=== PATIENT | female | born 1960 | race Caucasian/White ===

== ENCOUNTER 2024-03-06 21:00 | Emergency (ER) | payer OTHER, SELFPAY ==
[2024-03-06 21:02] VITALS: BP 162/95
[2024-03-06 21:16] LABS: % Basophils 0.7 % (0-2); % Eosinophils 1.4 % (0-6); % Immature Granulocytes 0.2 % (0-0.5); % Lymphocytes 47.3 % (20.5-51.1); % Monocytes 5.4 % (1.7-9.3); Absolute Basophils 0.1 10^3/uL (0-0.2); Absolute Eosinophils 0.1 10^3/uL (0-0.7); Absolute Lymphocytes 4.4 10^3/uL (1.2-3.4); Absolute Monocytes 0.5 10^3/uL (0.1-0.6); Absolute Neutrophils 4.2 10^3/uL (1.4-6.5); Hematocrit 39.6 % (37.0-47.0); Hemoglobin 13.5 g/dL (12.0-16.0); Mean Corp Hgb Conc. 34.1 g/dL (33.0-37.0); Mean Corpuscular Hgb 30.8 pg (27.0-31.0); Mean Corpuscular Volume 90.2 fL (81.0-99.0); Mean Platelet Volume 9.8 fL (7.4-10.4); Nucleated Red Blood Cells % 0 %; Platelet Count 316 10^3/uL (130-400); Red Blood Cell Count 4.39 10^6/uL (4.20-5.40); Red Cell Dist. Width 11.9 % (11.5-14.5); White Blood Cell Count 9.3 10^3/uL (4.8-10.8)
[2024-03-06 21:31] LABS: ALT (SGPT) 24 U/L (0-35); AST (SGOT) 28 U/L (14-36); Albumin 4.8 g/dl (3.5-5.0); Alkaline Phosphatase 68 U/L (38-126); Blood Urea Nitrogen 18 mg/dl (7-17); Calcium 9.9 mg/dl (8.4-10.2); Carbon Dioxide 26 mmol/L (22-30); Chloride 102 mmol/L (98-107); Glucose 112 mg/dl (70-99); Potassium 4.3 mmol/L (3.5-5.1); Sodium 136 mmol/L (135-145); Total Bilirubin 0.7 mg/dl (0.2-1.3); eGFR > 60.00
[2024-03-06 21:32] LABS: Lipase 91 U/L (23-300)
[2024-03-06 21:42] LABS: Troponin I < 0.012 ng/ml
[2024-03-06 23:50] VITALS: BMI 27.8
[2024-03-06 23:52] VITALS: BP 185/68
[2024-03-07] VITALS: BP 156/95
--- NOTE | 2024-03-07 00:49 | ED.GENMED ---
History of Present Illness
General
Chief Complaint: Chest Pain
Source: patient
Time Seen by Provider: 03/07/24 00:32
Travel History
Have you had any contact with someone who has COVID-19?: No
Do you have any symptoms of coronavirus? Fever > 100 degrees, chills, cough, shortness of breath, sore throat, loss of taste or smell, muscle aches, or headache?: No
History of Present Illness
History of Present Illness:
63-year-old female presents to the emergency room complaining of chest pain. Patient began having the chest discomfort at around 6 PM. When asked what she was doing at that time the pain began she states she was stressing about work. She denies
having chest pain with exertion. She does not smoke. No known significant medical history. Discomfort is gone at this time. She denies associated diaphoresis, shortness of breath or radiation of the discomfort. She did feel mildly nauseous when
the discomfort for started. She is not having any abdominal pain.
Past History
Past History
ED Past Medical History: Other (Esophageal stricture)
ED Past Surgical History: None
Social History
Tobacco: Non-smoker
Alcohol: None
Drug: None
Living: with family
Phy Exam
Physical Exam
Physical Exam:
General: Awake, Alert, Oriented X3. No acute distress.
Vitals: unremarkable
Head: Atraumatic
Eyes: Pupils equal, EOMI
Throat: Airway intact, no exudates
Neck: Trachea midline
Lungs: Clear and equal b/l
Heart: Regular rate, no murmurs
Abd: Soft, Nontender, No pulsatile mass
Neuro: Nonfocal
Skin: Warm, dry, no rash
Extremities: pulses equal b/l, no edema
Scores
Heart Score for Chest Pain Patients
STEMI patient?: No
History: Slightly or Non-Suspicious
ECG: Normal
Age: >45 - <65 years
Risk Factors: 1 or 2 Risk Factors
Troponin: </= Normal Limit
Heart Score for Chest Pain Patients: 2
Heart Score Risk: 2.5% MACE over next 6 weeks
Course
Orders/Labs/Results
Orders:
Orders
03/06/24 21:04
Electrocardiogram (*1) Urgent
Reason for Study: Chest Pain
EKG- Treatment ONCE
03/06/24 21:08
Complete Blood Count/With Diff Urgent
Comprehensive Metabolic Panel Urgent
Lipase Urgent
Troponin I Urgent
03/07/24 00:49
Electrocardiogram (*1) Urgent
Reason for Study: Chest Pain
EKG- Treatment ONCE
03/07/24 01:22
Troponin I Urgent
Abnormal Lab Results
03/06/24
21:08
Absolute Lymphs (auto) 4.4 H 10^3/uL
(1.2-3.4)
BUN 18 H mg/dl
(7-17)
Glucose 112 H mg/dl
(70-99)
03/06/24 21:08
03/06/24 21:08
Vital Signs
Initial and Last Documented VS:
Initial Vital Signs
Temp Pulse Resp BP Pulse Ox
98.4 F 88 18 162/95 99
03/06/24 21:02 03/06/24 21:02 03/06/24 21:02 03/06/24 21:02 03/06/24 21:02
Last Documented Vital Signs
Temp Pulse Resp BP Pulse Ox
98.4 F 71 16 156/95 97
03/06/24 21:02 03/07/24 00:45 03/07/24 00:45 03/07/24 00:00 03/07/24 00:45
MDM/Problems Addressed
Differential Diagnosis Includes:
ACS, GERD, chest wall pain
MDM/Problems Addressed:
No chest pain now. Troponin negative x 2. EKG normal x 2. No evidence for an unstable process. Patient stable for outpatient follow-up. We will put her on the chest pain outlined.
*Pulse Oximetry
Patient hypoxic: no
*EKG
Interpreted by ED Provider?: Yes
Interpretation: normal
Heart Rate: 81
Rate: normal
Rhythm: sinus
[place]: normal axis
Interval: normal interval
QRS Pattern: normal QRS
Ischemia: no ischemia
*Safety Sitter Interpretation
Rate: normal
Interpretation: normal
Heart Rate: 81
Rhythm: sinus
*Critical Care Note
Total Time (30-74mins, 75-104mins- exclusive of procedures): Not Applicable
ED Attending Note
-
Portions of this chart may have been created with voice recognition software.� Occasional wrong word or��sound alike� substitutions may have occurred due to the inherent limitations of voice recognition software.
Discharge Plan
Departure
Patient Disposition: Home (Routine Discharge)
Date of Disposition: 03/07/24
Time of Disposition: 02:10
Patient with high blood pressure during this ER visit?: Yes
Discharge Problem:
Chest pain
Instructions: Chest Pain DCA Follow Up, BLOOD PRESSURE
Prescriptions:
No Action
aspirin 325 MG tablet
325 mg PO Q6HPRN PRN (Reason: pain, headache, achyness)
Patient Comments:
Pt. does not take Aspirin daily
Referrals:
UNKNOWN - PT DOES,NOT KNOW [Family Provider] -
Interventions
Interventions:
*Risk Screen - Suicide Last Done: 03/06/24 21:02
*General Assessment Last Done: 03/06/24 21:02
*Neglect/Abuse Screening Last Done: 03/06/24 21:02
ED- Fall Risk Assessment Last Done: 03/06/24 23:50
*ED COVID-19 Vaccine History Last Done: 03/06/24 21:02
ED- Cardiac Assessment Last Done: 03/06/24 23:50
Discharge Date and Time
Print Language: [place]
[2024-03-07 01:00] VITALS: BP 147/72
[2024-03-07 01:59] LABS: Troponin I < 0.012 ng/ml
[2024-03-07 02:00] VITALS: BP 157/74
== END 2024-03-07 03:20 | disposition home or self-care (01) ==
LOC: EMR 21:00
PROVIDERS: Emergency Medicine; EMERGENCY PHYSICIAN Emergency Medicine
DX: R07.89 Other chest pain (principal); R03.0 Elevated blood-pressure reading, without diagnosis of hypertension
CPT/HCPCS: 99284; 80053; 83690; 84484; 85025; 93005